=== PATIENT | female | born 1965 | race Caucasian/White ===

== ENCOUNTER 2018-07-13 09:31 | Emergency (ER) | payer OTHER ==
[~2018-07-13] VITALS: Ht 172.7 cm; Wt 74.8 kg
[2018-07-13 10:38] VITALS: BP 122/61
[2018-07-13] MEDS ORDERED: BICILLIN-LA 1,200,000 UNITS/2 ML IM ONE (11:00)
== END 2018-07-13 10:41 | disposition home or self-care (01) ==
LOC: ED 10:23
DX: J02.0 Streptococcal pharyngitis (principal)
CPT/HCPCS: 96372; 99283; J0561